=== PATIENT | female | born 1980 | race American Indian/Alaskan Native ===

== ENCOUNTER 2017-08-09 10:21 | Emergency (ER) | payer MEDICAID ==
--- NOTE | 2017-08-09 12:05 | Emergency Department Report ---
HPI - General Chief Complaint: Nosebleed Time Seen by Provider: 08/09/17 11:35 - HPI HPI: Patient reports that she had an episode of nosebleed this morning. She also reports that she is having lower back pain on and off. Pain is 6-10 achy and both side of her back. Denies any urinary symptoms. Nothing makes pain better and nothing makes it worse. No [id number] medication taken. Denies any trauma to her nose. She said it happened one this morning in and none since. No previous episodes of nosebleed per patient. She says she is nasal congestion. Denies any cough or shortness of breath. Denies any sore throat or ear pain. Patient is currently on her menses ED Past Medical Hx - Past Medical History Previous Medical History?: Yes Additional medical history: vaginal delivery x 3 - Surgical History Past Surgical History?: No - Family History Family history: hypertension - Social History Smoking Status: Current Every Day Smoker Substance Use Type: None - Medications Home Medications: Home Medications Medication Instructions Recorded Confirmed Last Taken Type Cetirizine HCl [ZyrTEC] 10 mg PO QAM 14 Days #14 capsule 08/09/17 Unknown Rx Fluticasone [Flonase] 1 spray NS QDAY 14 Days #1 bottle 08/09/17 Unknown Rx Nitrofurantoin Monohyd/M-Cryst 100 mg PO QAM 7 Days #14 capsule 08/09/17 Unknown Rx [Macrobid 100 mg Capsule] ED Review of Systems ROS: Stated complaint: NOSE BLEED Other details as noted in HPI Comment: All other systems reviewed and negative Constitutional: no symptoms reported Eyes: denies: eye pain, eye discharge ENT: epistaxis, congestion. denies: ear pain, throat pain Respiratory: no symptoms reported Cardiovascular: denies: chest pain, palpitations, dyspnea on exertion, edema, syncope, paroxysmal nocturnal dyspnea Gastrointestinal: denies: abdominal pain, nausea, vomiting, constipation Genitourinary: denies: urgency, dysuria, frequency, hematuria, discharge, abnormal menses, dyspareunia Musculoskeletal: back pain. denies: joint swelling, arthralgia, myalgia Skin: denies: rash Neurological: denies: headache, numbness, paresthesias, confusion, abnormal gait , vertigo Physical Exam - Physical Exam Vital Signs: Vital Signs 08/09/17 10:29 Temperature 98.5 F Pulse Rate 86 Respiratory 18 Rate Blood Pressure 131/82 O2 Sat by Pulse 99 Oximetry General: 36-year-old female well-nourished well-developed and in no acute distress Physical Exam: Head: Normocephalic, atraumatic, no abrasion, no bruising and no contusion. Eyes: Biateral pupils equal and reactive to light, bilateral EOM intact.. Bilateral conjunctival and sclera without injection, normal accommodation. No nystagmus Mouth: Moist, no pharyngeal exudate or erythema. No peritonsillar abscesses. Uvula is midline and oral airways patent. Ears: TM congested without erythema. Bilateral EAC without any redness swelling or drainage. No mastoid bone tenderness Nose: Bilateral nasal turbinates congested with erythema and clear drainage. No signs of bleeding. Maxillary and frontal sinuses non-tender to palpate. Neck: Supple, No Cervical adenopathy, full range of motion and no C-spine tenderness. No swelling or tracheal deviation normal reflexes Cardiovascular: S1, S2. Regular rate and rhythm. No murmur. Capillary refill is less then 3 seconds. Lungs: Clear to auscultate bilaterally. No rhonchi, wheezes or rales. No chest wall tenderness. No chest contusion. No bruising to chest. MSK: Strength 5/5 in all extremities. No joint deformity or crepitus. Normal inspection. Full range of motion to all extremities. No laceration, abrasion or ecchymotic area noted. Abdomen: Non-tender to palpate in all quadrants, no guarding or rebound tenderness, positive bowel sounds in all quadrants. No CVA tenderness. No hernia, bruit or mass. No rigidity or distention. Extremities: No clubbing, cyanosis or edema. +2 pulses. No neurovascular compromise Skin: Clean, dry and intact. No rash or lesions. Neurological: GCS at 15, Pt is alert and oriented 3 speech is clear . 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 Normal gait. Negative Romberg and no pronator drift. Normal Reflexes. No motor or sensory deficit Back: No vertebral tenderness, no paraspinal tenderness. The bend over and touch his toes without any difficulties. Ambulates without any difficulties. Psych: Normal mood and behavior ED Course Vital Signs 08/09/17 10:29 Temperature 98.5 F Pulse Rate 86 Respiratory 18 Rate Blood Pressure 131/82 O2 Sat by Pulse 99 Oximetry - Reevaluation(s) Reevaluation #1: 08/09/17 12:40 She is stable throughout ED stay without any nasal bleeding. She is found to have increased white blood cell in her urine with large amount of blood which she is on her menses. ED Medical Decision Making - Lab Data Lab Results 08/09/17 Range/Units 11:02 Urine Color Yellow (Yellow) Urine Turbidity Clear (Clear) Urine pH 5.0 (5.0-7.0) Ur Specific Drake 1.013 (1.003-1.030) Urine Protein <15 mg/dl (Negative) mg/dL Urine Glucose (UA) Neg (Negative) mg/dL Urine Ketones Neg (Negative) mg/dL Urine Blood Lg (Negative) Urine Nitrite Neg (Negative) Ur Reducing Substances Not Reportable Urine Bilirubin Neg (Negative) Urine Ictotest Not Reportable Urine Urobilinogen 4.0 (<2.0) mg/dL Ur Leukocyte Esterase Sm (Negative) Urine WBC (Auto) 42.0 H (0.0-6.0) /HPF Urine RBC (Auto) 152.0 (0.0-6.0) /HPF U Epithel Cells (Auto) 2.0 (0-13.0) /HPF Urine Mucus Few /HPF Urine HCG, Qual Negative (Negative) - Medical Decision Making ED course: Patient here reports that she had episode of bleeding from her right nostril which was episodic. Physical findings for nasal congestion with clear drainage and erythema without any reading. No signs of bleeding noted. Patient also with urinalysis for large amount of blood which is from her menses , trace leukocyte Estrace and increased white blood cell. Patient is neurologically intact and her back exam is normal. I discussed lab results with her and she voiced understanding. Patient with acute cystitis, lower back pain and Epitaxis which is episodic. She also has allergic rhinitis. I discussed diagnosis and treatment plan with patient and she voiced understanding. I also instructed her that if her nosebleed recurs to return to the emergency room otherwise follow-up with primary care physician which she does not have one so I directed her to the [facility]. Critical care attestation.: If time is entered above; I have spent that time in minutes in the direct care of this critically ill patient, excluding procedure time. ED Disposition Clinical Impression: Mild epistaxis, UTI (urinary tract infection) with pyuria Allergic rhinitis Qualifiers: Allergic rhinitis trigger: other Allergic rhinitis seasonality: unspecified seasonality Qualified Code(s): J30.89 - Other allergic rhinitis Lower back pain Qualifiers: Chronicity: acute Back pain laterality: bilateral Sciatica presence: without sciatica Qualified Code(s): M54.5 - Low back pain Disposition: TO HOME OR SELFCARE Is pt being admited?: No Does the pt Need Aspirin: No Condition: Stable Instructions: Urinary Tract Infection in Women (ED), Back Pain (ED), Epistaxis (ED), Allergic Rhinitis (ED) Additional Instructions: Please increase her fluid intake Flush nostrils with saline nasal spray take antibiotic as prescribed F/U with primary care physician as instructed and if you do not have a primary care physician follow-up with [facility] in 2-3 If you nose bleed recurs return to the emergency room otherwise follow-up as instructed Prescriptions: Cetirizine HCl [ZyrTEC] 10 mg PO QAM 14 Days #14 capsule Fluticasone [Flonase] 1 spray NS QDAY 14 Days #1 bottle Nitrofurantoin Monohyd/M-Cryst [Macrobid 100 mg Capsule] 100 mg PO QAM 7 Days # 14 capsule Referrals: PRIMARY CARE,MD [Primary Care Provider] - 2-3 Days [facility] [Outside] - 2-3 Days Forms: Work/School Release Form(ED)
[2017-08-09 12:15] LABS: HCG Qualitative,Urine Negative (Negative)
[2017-08-09 12:19] LABS: Bilirubin,Urine NEG (Negative); Blood,Urine LG (Negative); Color,Urine Yellow (Yellow); Mucus,Urine FEW /HPF; Protein,Urine <15 mg/dL mg/dL (Negative)
[2017-08-09 13:02] VITALS: BP 131/81
== END 2017-08-09 13:01 | disposition home or self-care (01) ==
LOC: ED 10:21
DX: N39.0 Urinary tract infection, site not specified (principal); J30.89 Other allergic rhinitis; M54.5 Low back pain; R04.0 Epistaxis; F17.200 Nicotine dependence, unspecified, uncomplicated
CPT/HCPCS: 81001; 81025; 87086